=== PATIENT | male | born 1980 | race Caucasian/White ===

== ENCOUNTER → 2016-12-31 | Outpatient (CLI) | payer OTHER ==
--- NOTE | 2016-12-31 09:58 | REP ---
Clinical: Pain. Technique: AP and axial views of the left clavicle. Findings: Sternoclavicular and acromioclavicular joints are normal. The clavicle is intact. There is no evidence for acute fracture or dislocation. Surrounding soft tissues are unremarkable. Impression: Normal left clavicle radiographs. Signed by Tray Snow MD 12/31/2016 09:50 A
--- NOTE | 2016-12-31 09:58 | REP ---
Clinical: Pain . Technique: Internal rotation, external rotation, and Y view left shoulder . Findings: No acute fracture or dislocation. The acromioclavicular and glenohumeral joints are intact. No periarticular calcifications or degenerative changes are appreciated. Sub acromial space is normal. Surrounding soft tissues are unremarkable. Impression: Normal left shoulder radiographs. Signed by Tray Snow MD 12/31/2016 09:49 A
== END ==
LOC: M RAD 09:11
PROVIDERS: ATTEND Surgery
DX: M25.512 Pain in left shoulder (principal)